=== PATIENT | male | born 1940 | race African-American/Black ===

== ENCOUNTER 2017-09-17 15:20 | Outpatient (CLI) | payer MEDICARE ==
--- NOTE | 2017-09-17 15:55 | Diagnostic Imaging Report ---
Indication: COUGH Technique: 2 views of the chest Comparison: none. Findings: Lungs and pleural spaces are clear. Heart size is normal. Bones are unremarkable except for mild degenerative spondylosis changes. No significant interim change. Impression: No acute process
== END 2017-09-17 17:20 | disposition home or self-care (01) ==
LOC: RAD 15:20
DX: R05 Cough (principal); R06.02 Shortness of breath
CPT/HCPCS: 71020